=== PATIENT | male | born 1965 | race Caucasian/White ===

== ENCOUNTER 2023-12-15 14:56 | Emergency (ER) | payer BC ==
[~2023-12-15] VITALS: Ht 180.3 cm; Wt 99.8 kg
[2023-12-15] MEDS ORDERED: KETOROLAC TROMETHAMINE 15 MG/ML VIAL ONE (16:37)
[2023-12-15] MEDS ORDERED: LIDOCAINE 5% (PATCH) 1 EA PATCH TP ONE (16:37)
[2023-12-15] MEDS ORDERED: CYCLOBENZAPRINE 10 MG TABLET ONE (16:37)
[2023-12-15] MEDS: KETOROLAC TROMETHAMINE 15 MG/ML VIAL IM ONE (16:45)
[2023-12-15] MEDS: CYCLOBENZAPRINE 10 MG TABLET PO ONE (16:45)
[2023-12-15] MEDS: LIDOCAINE 5% (PATCH) 1 EA PATCH TP SCH (16:45)
[2023-12-15] MEDS ORDERED: IBUP-1490 PO (18:24)
[2023-12-15] MEDS ORDERED: ACET-2605 PO (18:24)
[2023-12-15] MEDS ORDERED: CYCL10TA9 PO (18:24)
[2023-12-15] MEDS ORDERED: LIDO30AD10 TP (18:24)
[2023-12-15 18:53] VITALS: BP 131/69; TEMP 97.6; O2SAT 100
== END 2023-12-15 18:53 | disposition home or self-care (01) ==
LOC: ER 15:00
DX: M62.830 Muscle spasm of back (principal); M54.50 Low back pain, unspecified
CPT/HCPCS: 99283; 96372; J1885